=== PATIENT | female | born 1950 | race Caucasian/White ===

== ENCOUNTER 2023-03-03 08:24 | Day surgery (SDC) | payer BC ==
[~2023-03-03] VITALS: Ht 149.9 cm; Wt 81.0 kg
[2023-03-03] VITALS (14 sets, daily range): BP systolic 116–169; BP diastolic 66–101
[~2023-03-03 08:24] MED LIST: ESTROVEN CMPLT M4 MG PO; MYRBETRIQ25 MG PO; OMEP20ER PO; PRAV20 PO
[2023-03-03] MEDS ORDERED: ZYRTEC10 M4 PO (09:18)
--- NOTE | 2023-03-03 10:08 | NUR ---
03/03/23 Ivy Gutierrez HISTORY, CHART, MEDICATIONS AND ALLERGIES REVIEWED BEFORE START OF PROCEDURE. PATIENT CONFIRMS NPO STATUS AND AGREES WITH SCHEDULED PROCEDURE. 3-LEAD EKG REVIEWED WITH PHYSICIAN PRIOR TO START OF PROCEDURE. MONITOR INTACT WITH CONTINUOUS PULSE OXIMETRY,CAPNOGRAPHY, 3-LEAD EKG, INTERMITTENT BP. SUPPLEMENTAL O2 TO BE TITRATED THROUGHOUT PROCEDURE TO MAINTAIN O2 SATURATION ABOVE 90%. PATIENT DETERMINED TO BE ASA APPROPRIATE FOR PROPOFOL SEDATION PRIOR TO START OF PROCEDURE BY .
== END 2023-03-03 11:01 | disposition home or self-care (01) ==
LOC: ORSCMMR 08:24 → ORD 09:30 → ORSCMMR 11:01
PROVIDERS: Internal Medicine Gastroenterology
PROC: 0DBL8ZX Excision of Transverse Colon, Via Natural or Artificial Opening Endoscopic, Diagnostic (ICD-10-PCS; principal; 2023-03-03 09:30)
DX: K62.5 Hemorrhage of anus and rectum (principal); K63.5 Polyp of colon; K21.9 Gastro-esophageal reflux disease without esophagitis; E78.00 Pure hypercholesterolemia, unspecified; N39.41 Urge incontinence; K64.4 Residual hemorrhoidal skin tags; K57.30 Diverticulosis of large intestine without perforation or abscess without bleeding; Z79.899 Other long term (current) drug therapy
CPT/HCPCS: 88305; J2704; J7120

== ENCOUNTER 2023-11-26 07:30 | Day surgery (SDC) | payer BC ==
[~2023-11-26] VITALS: Ht 154.9 cm; Wt 80.8 kg
[2023-11-26] VITALS (12 sets, daily range): BP systolic 131–154; BP diastolic 72–95
[~2023-11-26 07:30] MED LIST changes: +ZYRTEC10 M4 PO
[2023-11-26] MEDS ORDERED: CefOXitin Sodium 2,000 MG in NS 50 ML IV SCH (08:15)
[2023-11-26] MEDS ORDERED: Lactated Ringer's 1,000 ML IV SCH (08:15)
--- NOTE | 2023-11-26 08:38 | NUR ---
Ambulatory in Day Surgery History, Chart, Medications and Allergies reviewed before start of procedure. Pre-Op teaching done. Pt verbalizes understanding. Patient States Post-Procedure ride home has been arranged.
[2023-11-26] MEDS ORDERED: Midazolam HCl 1MG / ML 2ML Vial IV ONE (09:05)
[2023-11-26] MEDS ORDERED: Bupivacaine 0.5% HCl 5 MG/ML 30MLVIAL ONE (09:37)
[2023-11-26] MEDS ORDERED: EpiNEPhrine 1 MG/1 ML 1ML Vial ONE (09:45)
[2023-11-26] MEDS ORDERED: FentaNYL Citrate 50 MCG/ML 2 ML Injection ONE (09:46)
[2023-11-26] MEDS ORDERED: Lidocaine HCL 1% 10 ML MDV ONE (09:46)
[2023-11-26] MEDS ORDERED: propofoL 20 ML IV ONE (09:46)
[2023-11-26] MEDS ORDERED: Bupivacaine HCl 2.5 MG/ML 10ML P/F Injection ONE (09:46)
[2023-11-26] MEDS ORDERED: SuccINYLCHOLINE Chloride 100 MG/5 ML 5MLSYR ONE ×2 (10:44→11:12)
[2023-11-26] MEDS ORDERED: Sugammadex Sodium 200 MG/2ML SDV (100 MG/ML) ONE (10:44)
[2023-11-26] MEDS ORDERED: HYDROcodone 5-APAP 325 TAB PO PRN (11:05)
[2023-11-26] MEDS ORDERED: Rocuronium Bromide 10 MG/ML 5ML Injection IV ONE (11:12)
[2023-11-26] MEDS ORDERED: Dexamethasone Sod Phos 10 MG/ML 1ML VIAL ONE (11:12)
[2023-11-26] MEDS ORDERED: Ondansetron HCl 2 MG / ML 2ML Vial ONE (11:12)
--- NOTE | 2023-11-26 12:05 | NUR ---
PT ABLE TO MAKE NEEDS KNOWN. UP GETIING DRESSED WITHOUT DIFFICULTY. SIGNED UNDERSTOOD DISCHARGE INSTRUCTIONS. DRESSING TO RECTUM REMAINS CDI. NO NAUSEA OR PAIN T/O RECOVERY. SISTER PROVIDING TRANSPORTATION AFTER LEAVING HOSPITAL VIA W/C/ DENIES CONCERMS. ALL BELONIGS RETURNED.
== END 2023-11-26 23:59 | disposition home or self-care (01) ==
LOC: ORSCMMR 07:30 → ORD 08:00 → ORSCMMR 09:00
PROVIDERS: Surgery
PROC: 06BY0ZC Excision of Hemorrhoidal Plexus, Open Approach (ICD-10-PCS; principal; 2023-11-26 09:00)
DX: K64.2 Third degree hemorrhoids (principal); Z79.899 Other long term (current) drug therapy
CPT/HCPCS: 88304; J0171; J0330; J0694; J1100; J2001; J2003; J2250; J2405; J2704; J3010; J7120